=== PATIENT | female | born 1990 | race Caucasian/White ===

== ENCOUNTER 2022-06-09 14:31 | Emergency (ER) | payer OTHER ==
[~2022-06-09] VITALS: Ht 167.6 cm; Wt 49.9 kg
[2022-06-09 14:40] VITALS: BP_SYST 122
--- NOTE | 2022-06-09 14:44 | NUR ---
Patient to ER bed 7 to gown for evaluation. Side rails up.
--- NOTE | 2022-06-09 14:46 | NUR ---
ER at bedside examining patient.
--- NOTE | 2022-06-09 14:50 | NUR ---
Ms. Lopez is a 32-year-old Female with no pertinent past medical history presents the emergency department for evaluation of a laceration to the left thumb. Patient states she was in her bathroom when she accidentally knocked over a mirror that was attached to her bathroom door. She reports that the mirror shattered causing a laceration to her thumb. Pain localized to the area of the laceration. Denies associated numbness, tingling, or loss of range of motion. Patient's Tdap is not up-to-date.
[2022-06-09] MEDS ORDERED: BACITRACIN 1 GM OINT TP ONE (15:00)
[2022-06-09] MEDS ORDERED: DIPHTH,PERTUSS(ACELL),TET VAC 0.5 ML VIAL (Tdap) I.M. ONE (15:00)
[2022-06-09] MEDS ORDERED: LIDOCAINE 1% 10 MG/ML, 20 ML MDV INJ ONE (15:00)
--- NOTE | 2022-06-09 16:07 | NUR ---
Cleansed and dressed sutured thumb prior to dc.
--- NOTE | 2022-06-09 16:09 | NUR ---
Patient given written and verbal discharge instructions and verbalizes understanding. ER MD discussed with patient the results and treatment provided. Patient in stable condition. ID arm band removed. Rx of given. Patient educated on pain management and to follow up with PMD. Pain Scale 0/10. Opportunity for questions provided and answered. Medication side effect fact sheet provided.
[2022-06-09 16:13] VITALS: BP_SYST 122
== END 2022-06-09 16:02 | disposition home or self-care (01) ==
LOC: SED 14:31
DX: S61.012A Laceration without foreign body of left thumb without damage to nail, initial encounter (principal); Z79.899 Other long term (current) drug therapy; W23.1XXA Caught, crushed, jammed, or pinched between stationary objects, initial encounter; Y93.89 Activity, other specified; Y92.89 Other specified places as the place of occurrence of the external cause; Y99.8 Other external cause status
CPT/HCPCS: 99283; 73120; 90715; 90471; 12002; J2001